=== PATIENT | female | born 1950 | race Caucasian/White ===

== ENCOUNTER → 2016-10-04 | Outpatient (CLI) | payer BC ==
--- NOTE | 2016-10-04 17:30 | REPMRS ---
Patient History The patient states she has not had a clinical breast exam in over a year. Patient is postmenopausal. Family history of breast cancer in mother at age 70 and breast cancer in maternal cousin at age 50 or over. Took hormonal contraceptives for 6 months. Digital Woman Screen Mammo: October 04, 2016 - Exam #: [id number] Bilateral CC and MLO view(s) were taken. Technologist: Chinyere Rose, Technologist Prior study comparison: September 28, 2015, digital woman screen mammo performed at [facility]. September 21, 2014, digital woman screen mammo performed at [facility]. August 14, 2013, bilateral bilat screen digital mammo, performed at [facility] ([facility]). July 31, 2012, bilateral bilat screen digital mammo, performed at [facility] ([facility]). FINDINGS: There are scattered fibroglandular densities. There has been no change in the appearance of the mammogram from the prior studies. There is a mild amount of residual fibroglandular tissue which is fairly symmetric. There is no interval development of dominant mass, architectural distortion, or clustered microcalcification suggestive of malignancy. There are scattered, small, benign calcifications of doubtful clinical significance. No significant changes when compared with prior studies. ASSESSMENT: BI-RADS/ACR category 2 mammogram. Benign finding(s). Recommendation Routine screening mammogram in 1 year (for women over age 40). This mammogram was interpreted with the aid of an FDA-approved computer-aided dectection system. A. Negative x-ray reports should not delay biopsy if a dominant or clinically suspicious mass is present. B. Four to eight percent of cancers are not identified by mammography. C. Adenosis and dense breast may obscure an underlying neoplasm. Electronically Signed By: Leobardo Ragland MD 10/04/16 [id number]
== END ==
LOC: M WHC 12:56
PROVIDERS: ATTEND Nurse Practitioner Family
DX: R92.0 Mammographic microcalcification found on diagnostic imaging of breast (principal); Z80.3 Family history of malignant neoplasm of breast

== ENCOUNTER → 2017-04-16 | Day surgery (SDC) | payer BC ==
[~2017-04-16] MED LIST: LIDOCAINE 2% INJ 100 MG/5 ML SDV (FOR ANES.) As Ordered; NS 1,000 ML IV; PROPOFOL 200 MG/20 ML VIAL As Ordered
[2017-04-16] MEDS: NS 1,000 ML IV (12:00)
== END | disposition home or self-care (01) ==
LOC: M OPP 12:06
DX: Z09 Encounter for follow-up examination after completed treatment for conditions other than malignant neoplasm (principal); Z86.010 Personal history of colon polyps; K64.0 First degree hemorrhoids; K57.30 Diverticulosis of large intestine without perforation or abscess without bleeding; K21.9 Gastro-esophageal reflux disease without esophagitis; R12 Heartburn; R06.02 Shortness of breath; F32.9 Major depressive disorder, single episode, unspecified; Z78.0 Asymptomatic menopausal state; G47.8 Other sleep disorders; G47.30 Sleep apnea, unspecified; R06.83 Snoring; Z79.899 Other long term (current) drug therapy; Z80.3 Family history of malignant neoplasm of breast
CPT/HCPCS: G0105

== ENCOUNTER → 2017-10-16 | Outpatient (CLI) | payer BC | LOC: M WHC 10:02 | DX: Z12.31 Encounter for screening mammogram for malignant neoplasm of breast (principal) | CPT/HCPCS: 77067 ==

== ENCOUNTER → 2018-11-07 | Outpatient (CLI) | payer BC ==
[~2018-11-07] MED LIST changes: -LIDOCAINE 2% INJ 100 MG/5 ML SDV (FOR ANES.) As Ordered; +MULT1TAB10 PO; -NS 1,000 ML IV; -PROPOFOL 200 MG/20 ML VIAL As Ordered; +RANI150T PO; +SERT-155 PO
--- NOTE | 2018-11-07 11:12 | REPMRS ---
Patient History The patient states she has not had a clinical breast exam in over a year. Patient is postmenopausal. Family history of breast cancer at age 70 in mother, breast cancer at age 50 or over in maternal cousin. Took hormonal contraceptives for 6 months. 3D TOMOSYNTHESIS WAS PERFORMED. The [facility] lifetime risk for breast cancer is 11.6%. Digital Woman Screen Mammo: November 07, 2018 - Exam #: [id number] Bilateral CC and MLO view(s) were taken. Technologist: Tiffany Hunter Technologist Prior study comparison: October 16, 2017, bilateral digital woman screen mammo performed at [facility]. October 04, 2016, digital woman screen mammo performed at [facility]. FINDINGS: There are scattered fibroglandular densities. There has been no change in the appearance of the mammogram from the prior studies. There is a mild amount of residual fibroglandular tissue which is fairly symmetric. There is no interval development of dominant mass, architectural distortion, or clustered microcalcification suggestive of malignancy. Assessment: BI-RADS/ACR category 1 mammogram. Negative Mammogram. Recommendation Routine screening mammogram in 1 year (for women over age 40). This mammogram was interpreted with the aid of an FDA-approved computer-aided dectection system. Electronically Signed By: Rashaun Hendrickson MD 11/07/18 [id number]
== END ==
LOC: M WHC 10:23
PROVIDERS: ATTEND Family Medicine
DX: Z12.31 Encounter for screening mammogram for malignant neoplasm of breast (principal)

== ENCOUNTER → 2020-04-13 | Outpatient (CLI) | payer BC ==
[~2020-04-13] MED LIST changes: -SERT-155 PO; +SERT50TA29 PO
--- NOTE | 2020-04-13 08:40 | REPMRS ---
Patient History The patient states she has not had a clinical breast exam in over a year. Family history of breast cancer at age 70 in mother, breast cancer at age 50 or over in maternal cousin. Took hormonal contraceptives for 6 months. Digital Woman Screen Mammo: April 13, 2020 - Exam #: [id number] Bilateral CC and MLO view(s) were taken. Technologist: Chinyere Rose, Technologist Prior study comparison: November 07, 2018, bilateral digital woman screen mammo performed at [facility]. October 16, 2017, bilateral digital woman screen mammo performed at [facility]. October 04, 2016, digital woman screen mammo performed at [facility]. FINDINGS: The breast tissue is almost entirely fat. The [employer] volumetric breast density category is: A. There has been no change in the appearance of the mammogram from the prior studies. There is no interval development of dominant mass, architectural distortion, or grouped microcalcification typical of malignancy. 3-D tomosynthesis shows no additional findings. Assessment: BI-RADS/ACR category 1 mammogram. Negative Mammogram. Recommendation Routine screening mammogram of both breasts in 1 year (for women over age 40). This patient's [facility] Lifetime Breast Cancer RIsk is estimated at 10.5 %. This mammogram was interpreted with the aid of an FDA-approved computer-aided dectection system. Electronically Signed By: Elías Marinelli MD 04/13/20 0848
== END ==
LOC: M WHC 07:55
PROVIDERS: ATTEND Family Medicine
DX: Z12.31 Encounter for screening mammogram for malignant neoplasm of breast (principal); Z80.3 Family history of malignant neoplasm of breast; R92.8 Other abnormal and inconclusive findings on diagnostic imaging of breast

== ENCOUNTER → 2020-12-21 | Outpatient (REF) | payer BC ==
[2020-12-21 18:47] LABS: % LABILE ALKALINE PHOSPHATASE 38.1 %
== END ==
LOC: M LAB REF 16:26
PROVIDERS: ATTEND Family Medicine
DX: E78.00 Pure hypercholesterolemia, unspecified (principal)

== ENCOUNTER → 2021-06-01 | Outpatient (CLI) | payer BC | LOC: M WHC 11:39 | PROVIDERS: ATTEND Family Medicine | DX: Z12.31 Encounter for screening mammogram for malignant neoplasm of breast (principal) ==

== ENCOUNTER → 2021-06-07 | Outpatient (CLI) | payer BC | LOC: M WHC 13:17 | PROVIDERS: ATTEND Family Medicine | DX: D48.61 Neoplasm of uncertain behavior of right breast (principal) | CPT/HCPCS: 77065; G0279 ==

== ENCOUNTER → 2021-06-16 | Outpatient (CLI) | payer BC ==
[~2021-06-16] MED LIST changes: +**SFHN** LIDOCAINE 1% MDV 20ML VIAL ONE; +**SFHN** SODIUM BICARBONATE 8.4% 50MEQ 50ML VIAL ONE; +VITA100T59 PO; +ZINC1TAB2 PO
[2021-06-16 16:18] VITALS: BP 124/74
== END ==
LOC: M WHCPRO 13:44
PROVIDERS: ATTEND Family Medicine
DX: N60.21 Fibroadenosis of right breast (principal); D24.1 Benign neoplasm of right breast; D48.61 Neoplasm of uncertain behavior of right breast

== ENCOUNTER → 2022-06-06 | Outpatient (CLI) | payer BC ==
[~2022-06-06] MED LIST changes: -**SFHN** LIDOCAINE 1% MDV 20ML VIAL ONE; -**SFHN** SODIUM BICARBONATE 8.4% 50MEQ 50ML VIAL ONE
== END ==
LOC: M WHC 12:15
PROVIDERS: ATTEND Family Medicine
DX: Z12.31 Encounter for screening mammogram for malignant neoplasm of breast (principal)

== ENCOUNTER 2022-09-20 13:39 | Day surgery (SDC) | payer BC ==
[~2022-09-20] VITALS: Ht 165.1 cm; Wt 113.4 kg
[2022-09-20] MEDS ORDERED: propofoL 200 MG/20 ML VIAL As Ordered ONE (16:32)
[2022-09-20] MEDS ORDERED: LIDOCAINE 2% 100MG/5ML SDV (FOR ANES.) As Ordered ONE (16:32)
[2022-09-20 16:33] VITALS: TEMP 97
[2022-09-20 16:45] VITALS: BP 112/53; O2SAT 97
== END 2022-09-20 16:50 | disposition home or self-care (01) ==
LOC: M SDC 13:39
PROVIDERS: ATTEND Internal Medicine Gastroenterology
DX: Z12.11 Encounter for screening for malignant neoplasm of colon (principal); Z86.010 Personal history of colon polyps; K64.1 Second degree hemorrhoids; K57.30 Diverticulosis of large intestine without perforation or abscess without bleeding; K62.89 Other specified diseases of anus and rectum; K62.5 Hemorrhage of anus and rectum; Z79.899 Other long term (current) drug therapy

== ENCOUNTER → 2023-06-08 | Outpatient (CLI) | payer BC | LOC: M WHC 10:47 | PROVIDERS: ATTEND Family Medicine | DX: Z12.31 Encounter for screening mammogram for malignant neoplasm of breast (principal) ==

== ENCOUNTER → 2023-06-28 | Outpatient (CLI) | payer BC | LOC: M WHC 09:25 | PROVIDERS: ATTEND Family Medicine | DX: N63.0 Unspecified lump in unspecified breast (principal) ==

== ENCOUNTER → 2023-12-05 | Outpatient (CLI) | payer BC, MEDICARE | LOC: M ONCR 12:33 | PROVIDERS: ATTEND General Practice | DX: C50.412 Malignant neoplasm of upper-outer quadrant of left female breast (principal); Z79.899 Other long term (current) drug therapy; Z80.3 Family history of malignant neoplasm of breast; Z80.42 Family history of malignant neoplasm of prostate; Z86.0100 Personal history of colon polyps, unspecified; Z92.21 Personal history of antineoplastic chemotherapy ==

== ENCOUNTER → 2024-01-03 | Outpatient (RCR) | payer BC | LOC: M ONCR 12-13 10:14 | PROVIDERS: ATTEND General Practice | DX: Z51.0 Encounter for antineoplastic radiation therapy (principal); C50.412 Malignant neoplasm of upper-outer quadrant of left female breast ==

== ENCOUNTER 2024-01-28 10:26 | Outpatient (RCR) | payer BC | END 2024-02-02 | LOC: M ONCR 10:26 | PROVIDERS: ATTEND General Practice | DX: Z51.0 Encounter for antineoplastic radiation therapy (principal); C50.412 Malignant neoplasm of upper-outer quadrant of left female breast ==

== ENCOUNTER → 2024-02-12 | Outpatient (CLI) | payer BC, MEDICARE ==
[~2024-02-12] MED LIST changes: +TRIA1CR80 TOP
== END ==
LOC: M ONCR 10:15
PROVIDERS: ATTEND General Practice
DX: C50.412 Malignant neoplasm of upper-outer quadrant of left female breast (principal); Z92.3 Personal history of irradiation; L59.8 Other specified disorders of the skin and subcutaneous tissue related to radiation

== ENCOUNTER → 2024-05-20 | Outpatient (CLI) | payer BC, MEDICARE ==
[2024-05-20 13:23] LABS: BASO % 0.7 % (0.0-1.0); EOS # 0.1 10^3/uL (0.0-0.5); EOS % 2.5 % (0.0-3.0); HEMATOCRIT 39.9 % (36.0-47.0); HEMOGLOBIN 12.4 g/dl (12.0-15.5); LYMPH % 24.7 % (24.0-44.0); MEAN CORPUSCULAR HEMOGLOBIN 29.4 pg (27.0-33.0); MEAN CORPUSCULAR HGB CONC 31.1 g/dl (32.0-36.5); MEAN CORPUSCULAR VOLUME 94.5 fl (80.0-96.0); MONO # 0.3 10^3/uL (0.0-0.8); MONO % 6.7 % (2.0-8.0); NEUTROPHILS # 2.6 10^3/uL (1.5-8.5); NEUTROPHILS % 64.9 % (36.0-66.0); PLATELET COUNT, AUTOMATED 110 10^3/uL (150-450); RED BLOOD COUNT 4.22 10^6/uL (4.00-5.40); WHITE BLOOD COUNT 4.1 10^3/uL (4.0-10.0)
[2024-05-20 13:54] LABS: THYROID STIMULATING HORMONE 3.535 uIU/ML (0.55-4.78)
[2024-05-20 13:55] LABS: FREE T4 1.05 NG/DL (0.89-1.76)
[2024-05-20 13:58] LABS: ALBUMIN 3.3 G/DL (3.2-5.2); ALKALINE PHOSPHATASE 124 U/L (35-104); ALT/SGPT 20 U/L (7.0-40); AST/SGOT 22 U/L (<34); BILIRUBIN,TOTAL 0.4 MG/DL (0.3-1.2); BLOOD UREA NITROGEN 15 MG/DL (9-23); CALCIUM LEVEL 9.2 MG/DL (8.3-10.6); CARBON DIOXIDE LEVEL 30 MMOL/L (20-31); CHLORIDE LEVEL 106 MMOL/L (98-107); CREATININE FOR GFR 0.86 MG/DL (0.55-1.30); GLOMERULAR FILTRATION RATE > 60.0 (>39); GLUCOSE, FASTING 103 MG/DL (74-106); POTASSIUM SERUM 3.9 MMOL/L (3.5-5.1); SODIUM LEVEL 147 MMOL/L (136-145); TOTAL PROTEIN 5.9 G/DL (5.7-8.2)
== END ==
LOC: M WUC 09:23
PROVIDERS: ATTEND Family Medicine
DX: E78.00 Pure hypercholesterolemia, unspecified (principal); E07.9 Disorder of thyroid, unspecified